=== PATIENT | female | born 1965 | race Caucasian/White ===

== ENCOUNTER → 2021-04-01 | Emergency (ER) | payer OTHER ==
[~2021-04-01] MED LIST: CYCLOBENZAPRINE10 MG PO
== END | disposition home or self-care (01) ==
LOC: ER1 06:09
DX: S53.401A Unspecified sprain of right elbow, initial encounter (principal); S53.402A Unspecified sprain of left elbow, initial encounter; S16.1XXA Strain of muscle, fascia and tendon at neck level, initial encounter; S39.012A Strain of muscle, fascia and tendon of lower back, initial encounter; S29.012A Strain of muscle and tendon of back wall of thorax, initial encounter; R51.9 Headache, unspecified; M25.551 Pain in right hip; Z79.899 Other long term (current) drug therapy; E11.9 Type 2 diabetes mellitus without complications; I10 Essential (primary) hypertension; Z88.5 Allergy status to narcotic agent; V49.40XA Driver injured in collision with unspecified motor vehicles in traffic accident, initial encounter; Y92.410 Unspecified street and highway as the place of occurrence of the external cause
CPT/HCPCS: 70450; 72072; 72100; 72125; 73070; 73502; 99284

== ENCOUNTER → 2022-01-25 | Outpatient (CLI) | payer OTHER | LOC: EXRD 10:43 | DX: M54.50 Low back pain, unspecified (principal); R31.9 Hematuria, unspecified; M47.816 Spondylosis without myelopathy or radiculopathy, lumbar region; M43.16 Spondylolisthesis, lumbar region | CPT/HCPCS: 72100; 74018 ==